=== PATIENT | female | born 1990 | race Caucasian/White ===

== ENCOUNTER 2017-05-08 12:51 | Emergency (ER) | payer SELFPAY ==
[2017-05-08] MEDS ORDERED: NORMAL SALINE 1000 ML 1,000 ML IV ONE ×2 (13:23→15:41)
[2017-05-08] MEDS ORDERED: METHYLPREDNISOLONE INJ 125 MG/2 ML SDV IV ONE (13:23)
[2017-05-08] MEDS ORDERED: DIPHENHYDRAMINE HCL 50 MG/ML VIAL IV ONE (13:23)
[2017-05-08] MEDS ORDERED: FAMOTIDINE INJ/PF 20 MG/2 ML SDV IV ONE (13:23)
--- NOTE | 2017-05-08 13:26 | ER Document Report ---
ED Medical Screen (RME) - General Chief Complaint: Dizziness Stated Complaint: DIFFICULTY CONCENTRATING Time Seen by Provider: 05/08/17 13:22 Mode of Arrival: Wheelchair Information source: Patient TRAVEL OUTSIDE OF THE [place] 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 Has had difficulty concentrating since but denies SOB; has min rash on hands - Related Data Allergies/Adverse Reactions: pineapple [Pineapple] Allergy (Severe, Verified 06/25/15 10:47) SOB, Hives latex [Latex] Allergy (Mild, Verified 06/25/15 10:30) itching mangos Allergy (Severe, Uncoded 06/25/15 10:47) SOB, Hives Past Medical History - Social History Frequency of alcohol use: Rare Drug Abuse: None - Past Medical History Cardiac Medical History: Denies: Hx Hypertension, Hx Pulmonary Embolism, Hx Heart Murmur Pulmonary Medical History: Denies: Hx Asthma, Hx Sleep Apnea, Hx Tuberculosis Neurological Medical History: Denies: Hx Cerebrovascular Accident, Hx Seizures Endocrine Medical History: Denies: Hx Hyperthyroidism, Hx Hypothyroidism Renal/ Medical History: Denies: Hx Kidney Stones, Hx Ovarian Cysts, Hx Peritoneal Dialysis, Hx Pelvic Inflammatory Disease Malignancy Medical History: Denies: Hx Breast Cancer, Hx Cervical Cancer, Hx Ovarian Cancer GI Medical History: Reports: Hx Gastroesophageal Reflux Disease. Denies: Hx Hiatal Hernia, Hx Ulcer Musculoskeltal Medical History: Denies Hx Fibromyalgia Psychiatric Medical History: Denies: Hx Bipolar Disorder, Hx Depression, Hx Post Traumatic Stress Disorder , Hx Schizophrenia Traumatic Medical History: Denies: Hx Fractures Infectious Medical History: Denies: Hx HIV Past Surgical History: Reports: Hx Section - x2, Hx Oral Surgery - wisdome teeth - Immunizations Hx Diphtheria, Pertussis, Tetanus Vaccination: No - refuses Physical Exam - Vital signs Vitals: Temp Pulse Resp BP Pulse Ox 97.6 F 69 18 117/74 96 05/08/17 12:59 05/08/17 12:59 05/08/17 12:59 05/08/17 12:59 05/08/17 12:59 Course - Vital Signs Vital signs: Temp Pulse Resp BP Pulse Ox 97.6 F 69 18 117/74 96 05/08/17 12:59 05/08/17 12:59 05/08/17 12:59 05/08/17 12:59 05/08/17 12:59
[2017-05-08 13:49] LABS: ABSOLUTE EOSINOPHILS # (AUTO) 0.1 10^3/uL (0.0-0.6); ABSOLUTE LYMPHOCYTES (AUTO) 2.8 10^3/uL (0.5-4.7); ABSOLUTE MONOCYTES (AUTO) 0.6 10^3/uL (0.1-1.4); ABSOLUTE NEUT (AUTO) 6.9 10^3/uL (1.7-8.2); BASOPHILS % (AUTO) 0.2 % (0-2); EOSINOPHILS % (AUTO) 0.9 % (0-6); HEMATOCRIT 37.6 % (36.0-47.0); HEMOGLOBIN 12.8 g/dL (12.0-15.5); HGB HCT DIFFERENCE 0.8; LYMPHOCYTES % (AUTO) 26.9 % (13-45); MEAN CORPUSCULAR HEMOGLOBIN 30.6 pg (27.0-33.4); MEAN CORPUSCULAR HGB CONC 34.1 g/dL (32.0-36.0); MEAN CORPUSCULAR VOLUME 90 fl (80-97); RED BLOOD COUNT 4.18 10^6/uL (3.72-5.28); WHITE BLOOD COUNT 10.5 10^3/uL (4.0-10.5)
[2017-05-08 14:02] LABS: ALANINE AMINOTRANSFERASE 28 U/L (9-52); ALBUMIN 4.2 g/dL (3.5-5.0); ALKALINE PHOSPHATASE 70 U/L (38-126); ANION GAP 11 (5-19); ASPARTATE AMINO TRANSFERASE 17 U/L (14-36); BILIRUBIN,DIRECT 0.3 mg/dL (0.0-0.4); BILIRUBIN,TOTAL 0.7 mg/dL (0.2-1.3); BLOOD UREA NITROGEN 16 mg/dL (7-20); CALCIUM 9.2 mg/dL (8.4-10.2); CARBON DIOXIDE 26 mmol/L (22-30); CHLORIDE 103 mmol/L (98-107); GLUCOSE 116 mg/dL (75-110); POTASSIUM 3.8 mmol/L (3.6-5.0); SODIUM 139.7 mmol/L (137-145); TOTAL PROTEIN 7.5 g/dL (6.3-8.2)
--- NOTE | 2017-05-08 14:04 | ER Document Report ---
ED General - General Chief Complaint: Dizziness Stated Complaint: DIFFICULTY CONCENTRATING Time Seen by Provider: 05/08/17 13:22 Mode of Arrival: Wheelchair Information source: Patient Notes: Patient states that she is allergic to pineapple and was rounded yesterday while at work. Patient states that she feels generally heavy and feels like she is having difficulty focusing. Patient reports a rash to her upper extremities. Patient reports she has had nausea and vomiting 2 episodes today while waiting in the lobby. Patient complains of dizziness in which the room seems to be rotating. Patient states that she took 2 Benadryl tabs at home and then took [id number] cough syrup to help with her symptoms. TRAVEL OUTSIDE OF THE [place] IN LAST 30 DAYS: No - HPI Onset: Yesterday Onset/Duration: Gradual Quality of pain: No pain Pain Level: Denies Associated symptoms: Nausea, Vomiting. denies: Chest pain, Nonproductive cough , Productive cough, Diarrhea, Fever, Shortness of breath Exacerbated by: Denies Relieved by: Denies Similar symptoms previously: No Recently seen / treated by doctor: No - Related Data Allergies/Adverse Reactions: pineapple [Pineapple] Allergy (Severe, Verified 06/25/15 10:47) SOB, Hives latex [Latex] Allergy (Mild, Verified 06/25/15 10:30) itching mangos Allergy (Severe, Uncoded 06/25/15 10:47) SOB, Hives Past Medical History - General Information source: Patient - Social History Smoking Status: Current Some Day Smoker Frequency of alcohol use: Rare Drug Abuse: None Occupation: hotel Lives with: Spouse/Significant other Family History: Reviewed & Not Pertinent - Medical History Notes: Patient's medication list was reviewed with patient including [id number] medications. GI Medical History: Reports: Hx Gastroesophageal Reflux Disease Infectious Medical History: Denies: Hx HIV Past Surgical History: Reports: Hx Section - x2, Hx Oral Surgery - wisdome teeth - Immunizations Hx Diphtheria, Pertussis, Tetanus Vaccination: No - refuses Review of Systems - Review of Systems Constitutional: No symptoms reported. denies: Fever EENT: No symptoms reported. denies: Throat pain, Throat swelling Cardiovascular: Dizziness. denies: Chest pain, Dyspnea, Syncope Respiratory: No symptoms reported. denies: Cough, Short of breath Gastrointestinal: Nausea, Vomiting. denies: Abdominal pain, Diarrhea Genitourinary: No symptoms reported. denies: Dysuria Female Genitourinary: No symptoms reported. denies: Musculoskeletal: No symptoms reported. denies: Back pain Skin: Rash Hematologic/Lymphatic: No symptoms reported Neurological/Psychological: Other - difficulty focusing. denies: Lost consciousness, Headaches Physical Exam - Vital signs Vitals: Temp Pulse Resp BP Pulse Ox 97.6 F 69 18 117/74 96 05/08/17 12:59 05/08/17 12:59 05/08/17 12:59 05/08/17 12:59 05/08/17 12:59 - General General appearance: Appears well, Alert, Anxious In distress: None - HEENT Head: Normocephalic, Atraumatic Eyes: Normal Conjunctiva: Normal Nasal: Normal Mouth/Lips: Normal. No: Angioedema Mucous membranes: Normal Pharynx: Normal. No: Tonsillar hypertrophy, Uvular edema, Potential airway comprom. Neck: Normal, Supple. No: Lymphadenopathy - Respiratory Respiratory status: No respiratory distress Chest status: Nontender Breath sounds: Normal. No: Rales, Rhonchi, Stridor, Wheezing Chest palpation: Normal - Cardiovascular Rhythm: Regular Heart sounds: S1 appreciated, S2 appreciated Murmur: No - Abdominal Inspection: Obese Distension: No distension Bowel sounds: Normal Tenderness: Nontender Organomegaly: No organomegaly - Back Back: Normal, Nontender. No: CVA tenderness - Extremities General upper extremity: Normal inspection, Nontender, Normal ROM General lower extremity: Normal inspection, Nontender, Normal ROM - Neurological Neuro grossly intact: Yes Cognition: Normal Orientation: AAOx4 [place] Coma Scale Eye Opening: Spontaneous [place] Coma Scale Verbal: Oriented [place] Coma Scale Motor: Obeys Commands [place] Coma Scale Total: 15 Speech: Normal. No: Dysarthria, Expressive aphasia, Receptive aphasia Cranial nerves: Normal - Psychological Associated symptoms: Anxious, Tearful - Skin Skin Temperature: Warm Skin Moisture: Dry Skin irregularity: Rash - Faint erythematous rash to bilateral upper extremities concerning for urticaria Course - Re-evaluation Re-evalutation: 05/08/17 15:43 Patient brought chicken wings and ate those while here in the emergency department. Patient states that she is feeling somewhat improved and states that her rash has resolved. Patient states that she has not been able to go the bathroom and has a really dry [place]. Patient advised that due to medication she was given that this is a typical side effect with these medications. Patient does states she has some continued dizziness in which she describes a rotational movement. Patient encouraged to get a urinary specimen that she has been here several hours and had a liter of fluid. Patient advised that she will be given additional IV fluids as well as additional medication to help with her symptoms. 05/08/17 16:54 Patient reports that she is feeling much better at this time. Patient denies any dizziness, nausea or vomiting. Patient denies any difficulty breathing and denies any rash or pruritus at this time. Discussed results of patient's diagnostic test with patient. Patient advised she will need to follow-up with primary doctor for recheck. Discussed positive opiates on her urine drug screen. Patient denies any use of opiates. Patient does report using cough syrup and there is a question as to whether or not this may have caused a false positive on her drug screen at this time. - Vital Signs Vital signs: Temp Pulse Resp BP Pulse Ox 97.6 F 69 18 117/74 96 05/08/17 12:59 05/08/17 12:59 05/08/17 12:59 05/08/17 12:59 05/08/17 12:59 - Laboratory Result Diagrams: 05/08/17 13:35 05/08/17 13:35 Laboratory results interpreted by me: 05/08/17 05/08/17 13:35 16:08 Glucose 116 H Ur Leukocyte Esterase TRACE H Labs- Entire Visit 05/08/17 05/08/17 05/08/17 13:35 13:35 13:35 WBC 10.5 RBC 4.18 Hgb 12.8 Hct 37.6 MCV 90 MCH 30.6 MCHC 34.1 RDW 13.0 Plt Count 401 Seg Neutrophils % 66.0 Lymphocytes % 26.9 Monocytes % 6.0 Eosinophils % 0.9 Basophils % 0.2 Absolute Neutrophils 6.9 Absolute Lymphocytes 2.8 Absolute Monocytes 0.6 Absolute Eosinophils 0.1 Absolute Basophils 0.0 Sodium 139.7 Potassium 3.8 Chloride 103 Carbon Dioxide 26 Anion Gap 11 BUN 16 Creatinine 0.70 Est GFR ( Amer) > 60 Est GFR (Non-Af Amer) > 60 Glucose 116 H Calcium 9.2 Total Bilirubin 0.7 Direct Bilirubin 0.3 Indirect Bilirubin Not Reportable Neonat Total Bilirubin Not Reportable AST 17 ALT 28 Alkaline Phosphatase 70 Total Protein 7.5 Albumin 4.2 Serum HCG, Qual NEGATIVE Urine Color Urine Appearance Urine pH Ur Specific [place] Urine Protein Urine Glucose (UA) Urine Ketones Urine Blood Urine Nitrite Urine Bilirubin Urine Urobilinogen Ur Leukocyte Esterase Urine WBC (Auto) Urine RBC (Auto) Urine Bacteria (Auto) Squamous Epi Cells Auto Urine Mucus (Auto) Urine Ascorbic Acid Urine Opiates Screen Urine Methadone Screen Ur Barbiturates Screen Ur Phencyclidine Scrn Ur Amphetamines Screen U Benzodiazepines Scrn Urine Cocaine Screen U Marijuana (THC) Screen 05/08/17 05/08/17 16:08 16:08 WBC RBC Hgb Hct MCV MCH MCHC RDW Plt Count Seg Neutrophils % Lymphocytes % Monocytes % Eosinophils % Basophils % Absolute Neutrophils Absolute Lymphocytes Absolute Monocytes Absolute Eosinophils Absolute Basophils Sodium Potassium Chloride Carbon Dioxide Anion Gap BUN Creatinine Est GFR ( Amer) Est GFR (Non-Af Amer) Glucose Calcium Total Bilirubin Direct Bilirubin Indirect Bilirubin Neonat Total Bilirubin AST ALT Alkaline Phosphatase Total Protein Albumin Serum HCG, Qual Urine Color YELLOW Urine Appearance SLIGHTLY-CLOUDY Urine pH 6.0 Ur Specific [place] 1.020 Urine Protein NEGATIVE Urine Glucose (UA) NEGATIVE Urine Ketones NEGATIVE Urine Blood NEGATIVE Urine Nitrite NEGATIVE Urine Bilirubin NEGATIVE Urine Urobilinogen NEGATIVE Ur Leukocyte Esterase TRACE H Urine WBC (Auto) 7 Urine RBC (Auto) 2 Urine Bacteria (Auto) TRACE Squamous Epi Cells Auto 9 Urine Mucus (Auto) RARE Urine Ascorbic Acid NEGATIVE Urine Opiates Screen UNCONFIRMED POSITIVE Urine Methadone Screen NEGATIVE Ur Barbiturates Screen NEGATIVE Ur Phencyclidine Scrn NEGATIVE Ur Amphetamines Screen NEGATIVE U Benzodiazepines Scrn NEGATIVE Urine Cocaine Screen NEGATIVE U Marijuana (THC) Screen NEGATIVE Discharge - Discharge Clinical Impression: Vertigo Nausea and vomiting Qualifiers: Vomiting type: unspecified Vomiting Intractability: non-intractable Qualified Code(s): R11.2 - Nausea with vomiting, unspecified Allergic reaction Qualifiers: Encounter type: initial encounter Qualified Code(s): T78.40XA - Allergy, unspecified, initial encounter Condition: Stable Disposition: HOME, SELF-CARE Instructions: Vomiting ([facility]), Meclizine ([facility]), Intravenous (IV) Fluids ([facility]), Vertigo ([facility]), Antinausea Medication ([facility]), Acute Allergic Reaction ([facility]), Steroid Medication, Family Physicians / Practices Additional Instructions: Return immediately for any new or worsening symptoms Followup with your primary care provider, call tomorrow to make a followup appointment Prescriptions: Meclizine HCl [Antivert 25 mg Tablet] 25 mg PO ASDIR PRN #15 tablet PRN Reason: Ondansetron HCl [Zofran 4 mg Tablet] 1 - 2 tab PO Q6 PRN #15 tablet PRN Reason: Prednisone [Deltasone 20 mg Tablet] 3 tab PO DAILY 4 Days Forms: Return to Work Referrals: [facility] [Provider Group] - Follow up as needed
[2017-05-08] MEDS ORDERED: ONDANSETRON HCL INJ/PF 4 MG/2 ML SDV IV ONE (15:42)
[2017-05-08] MEDS ORDERED: MECLIZINE HCL 25 MG TABLET PO ONE (15:46)
[2017-05-08 16:29] LABS: APPEARANCE,URINE SLIGHTLY-CLOUDY; BILIRUBIN,URINE NEGATIVE (NEGATIVE); GLUCOSE, URINE NEGATIVE (NEGATIVE); KETONES,URINE NEGATIVE (NEGATIVE); LEUKOCYTE ESTERASE,URINE TRACE (NEGATIVE); NITRITE,URINE NEGATIVE (NEGATIVE); PROTEIN,URINE NEGATIVE (NEGATIVE); UROBILINOGEN,URINE NEGATIVE mg/dL (<2.0)
[2017-05-08 16:37] LABS: URINE BARBITURATES SCREEN NEGATIVE; URINE METHADONE SCREEN NEGATIVE; URINE OPIATES LOW UNCONFIRMED POSITIVE; URINE PHENCYCLIDINE SCREEN NEGATIVE
[2017-05-08 17:22] VITALS: BP 116/73
--- NOTE | 2017-05-08 23:06 | EKG REPORT ---
SEVERITY:- ABNORMAL ECG - SINUS ARRHYTHMIA, RATE 54-76 NONSPECIFIC IVCD WITH LAD NONSPECIFIC T CHANGES ANT LEADS : Confirmed by: Jenny Clarke 08-May-2017 23:06:00
== END 2017-05-08 17:22 | disposition home or self-care (01) ==
LOC: EEVIPCON 12:51 → ER 12:51
DX: R42 Dizziness and giddiness (principal); R11.2 Nausea with vomiting, unspecified; T78.40XA Allergy, unspecified, initial encounter; X58.XXXA Exposure to other specified factors, initial encounter; R29.818 Other symptoms and signs involving the nervous system; F17.200 Nicotine dependence, unspecified, uncomplicated; Z91.040 Latex allergy status; Z91.018 Allergy to other foods
CPT/HCPCS: 93005; 99284; 96361; 96374; 96375; 36415; 84703; 85025; 80053; 81001; 80307; 93010; J1200; J2930; J2405; J7030; S0028